=== PATIENT | male | born 1985 | race Hispanic/Latino ===

== ENCOUNTER 2021-08-12 17:05 | Emergency (ER) | payer OTHER ==
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
--- NOTE | 2021-08-13 11:31 | CT ---
CT cervical spine Technique: Multiple axial sections were obtained from above C1 inferiorly to the upper T2 level. Reconstructed coronal and sagittal images were obtained. Findings: Vertebral body heights and disc spaces are maintained. No bony central or bony neural foraminal stenosis is seen. No fracture or subluxation is seen. Impression: 1. No acute abnormality is identified on CT study of the cervical spine. Diagnostic code #1 I agree with preliminary report from [facility], finalized on 08/12/21, 7:06 PM DECONTAMINATION TECHNICIAN, code 1
--- NOTE | 2021-08-13 11:33 | CT ---
Head CT Technique: Multiple axial sections through the brain were obtained. Intravenous contrast was not utilized. Reconstructed coronal and sagittal images were obtained. Comparison: No prior intracranial imaging is available. Findings: Ventricles along with basal cisterns and sulci over the convexities are within normal limits. No abnormal parenchymal densities are seen. No evidence of intracranial hemorrhage is seen. No midline shift or mass-effect is seen. Bone window settings were reviewed. Visualized mastoid sinuses are clear. Retention cyst is noted within the right maxillary sinus measuring about 2.3 cm. Very mild mucosal thickening is seen within the ethmoid sinuses. No acute calvarial abnormality is appreciated. Impression: 1. Probable retention cyst within the right maxillary sinus. Several other additional chronic sinus findings are seen. 2. No acute intracranial abnormality is seen. Diagnostic code #2 I agree with preliminary report from [facility], finalized on 08/12/21, 7:04 PM OFFICE MANAGER RECEPTIONIST, code 1
== END 2021-08-12 19:46 | disposition home or self-care (01) ==
LOC: JD.ED 17:05
DX: S00.83XA Contusion of other part of head, initial encounter (principal); V49.10XA Passenger injured in collision with unspecified motor vehicles in nontraffic accident, initial encounter; Y92.410 Unspecified street and highway as the place of occurrence of the external cause
CPT/HCPCS: 70450; 70450-26; 72125; 72125-26; 99284-25